=== PATIENT | male | born 1970 | race Caucasian/White ===

== ENCOUNTER 2016-03-28 15:05 | Emergency (ER) | payer OTHER ==
[2016-03-28] MEDS ORDERED: IBUPROFEN 800 MG TAB As Ordered ONE (15:21)
[2016-03-28] MEDS ORDERED: ACETAMINOPHEN 325 MG TAB As Ordered ONE (15:22)
[2016-03-28] MEDS ORDERED: IPRATROPIUM 0.5MG/ALBUTEROL 2.5MG INH SOL UD 3ML (DUONEB)(J7620) As Ordered ONE (15:27)
--- NOTE | 2016-03-28 17:04 | REP ---
Clinical: Cough. Comparison: 11/30/2005 Technique: PA and lateral. Findings: The mediastinum and cardiac silhouette are normal. The lung egan demonstrate chronic interstitial changes without acute consolidation, effusion, or pneumothorax. The skeletal structures are intact and normal. Impression: 1. Chronic stable changes. No acute cardiopulmonary process. Signed by Vinnie Arcos MD 03/28/2016 04:55 P
--- NOTE | 2016-03-28 17:17 | EDDOCDS ---
Physician Documentation [facility] Name: Diallo Batista Age: 46 yrs Sex: Male : 1970 Arrival Date: 03/28/2016 Time: 15:05 Bed PD Private MD: NO PRIMARY PHYSICIAN, . Disposition: 03/28/16 17:05 Discharged to Home/Self Care. Impression: Acute bronchitis, Acute suppurative otitis media without spontaneous rupture of ear drum, left ear. - Condition is Stable. - Discharge Instructions: Acute Bronchitis, Otitis Media, Adult. - Prescriptions for Augmentin 875- 125 mg Oral Tablet - take 1 tablet by ORAL route every 12 hours for 10 days; 20 tablet. benzonatate 200 mg Oral Capsule - take 1 capsule by ORAL route 3 times per day As needed; 30 capsule. Albuterol Sulfate 90 mcg/actuation Inhalation HFA Aerosol Inhaler - inhale 2 puff by INHALATION route every 4 hours As needed; 1 Inhaler. - Referral List Call for Appointment, Medication Reconciliation, Local Pharmacy Hours, Work Release Form - 3 day form. - Follow up: Emergency Department; When: As needed; Reason: Trouble breathing, Worsening of conditions. [facility]: [facility]; When: Call to arrange an appointment; Reason: Recheck today's complaints, To establish care. - Problem is new. - Symptoms have improved. Historical: - Allergies: no known allergies; - Home Meds: 1. none - PMHx: Hypertension; Asthma; - PSHx: none; - Social history: Smoking status: Patient uses tobacco products, heavy tobacco smoker. No barriers to communication noted, The patient speaks fluent [place], Speaks appropriately for age. - Family history: Not pertinent. - : The pt / caregiver states he / she is not on anticoagulants. Home medication list is obtained from the patient. - Exposure Risk Screening:: None identified. Vital Signs: 03/28 15:06 BP 162 / 99; Pulse 118; Resp 18 S; Temp 102.2(T); Pulse Ox 98% on R/A; Weight 107.05 kg dd6 / 236 lbs (R); Height 6 ft. 1 in. (185.42 cm) (R); 15:18 Temp 101.8(O); ms18 16:10 BP 158 / 98; Pulse 110; Resp 18; Temp 101.4(O); Pulse Ox 97% on R/A; Pain 0/10; dwg 17:03 BP 143 / 81; Pulse 98; Resp 18; Temp 100.6(O); Pulse Ox 96% on R/A; ms18 15:06 Body Mass Index 31.14 (107.05 kg, 185.42 cm) dd6 MDM: 15:17 Ibuprofen 800 mg PO once ordered. ef1 15:17 Acetaminophen Tablet 975 mg PO once ordered. ef1 15:17 Albuterol-Ipratropium 1 neb Nebulizer every 20 minutes x3 ordered. ef1 15:17 Call Respiratory ordered. ef1 15:17 Strep Screen, Nursing ordered. ef1 15:18 Chest, 2 View (pa\E\lat) Ordered. EDMS 15:19 Call Respiratory complete. ms18 15:30 GATS (NEGATIVE STREP SCREEN) Ordered. EDMS 15:42 Financial registration complete. zo 15:47 [facility] Payment Agreement was scanned into [employer] and attached to record. zo 16:14 -Influenza A&B Rapid Antigen - Nose Ordered. EDMS 16:45 -Influenza A&B Rapid Antigen - Nose Reviewed. ar2 Administered Medications: 15:24 Drug: Ibuprofen 800 mg Route: PO; dwg 16:12 Follow up: Response: Temperature is decreased dwg 15:24 Drug: Acetaminophen 975 mg [acetaminophen 325 mg tablet (3 tabs)] Route: PO; dwg 16:12 Follow up: Response: Temperature is decreased dwg 15:27 Drug: Albuterol-Ipratropium 1 neb [ipratropium-albuterol 0.5 mg-3 mg(2.5 mg base)/3 mL rs5 nebulization soln (1 neb)] Route: Nebulizer; Signatures: Dispatcher MedHost EDMS Anthony Lynne zo Nadeem Moore PA-C PA-C ar2 Nadeen Melissa PA-C PA-C ef1 Juanita Ruff RN RN ms18 Ceci Arellano RN RN kc3 Morales Padilla RNg Buddy Jeffries RT rs5 The chart was reviewed and I authenticate all verbal orders and agree with the evaluation and treatment provided.Attachments: 15:47 [facility] Payment Agreement zo MTDD
--- NOTE | 2016-03-28 17:17 | EDDOCDS ---
Nurse's Notes [facility] Name: Diallo Batista Age: 46 yrs Sex: Male : 1970 Arrival Date: 03/28/2016 Time: 15:05 Bed PD Private MD: NO PRIMARY PHYSICIAN, . Diagnosis: Acute bronchitis;Acute suppurative otitis media without spontaneous rupture of ear drum, left ear Presentation: 03/28 15:08 Presenting complaint: Patient states: chest congestion x 2 days with productive cough, kc3 and headache. Adult Sepsis Screening: The patient does not have new or worsening altered mentation. Patient's respiratory rate is less than 22. Systolic blood pressure is greater than 100. Patient has a qSOFA score of 0- Negative Sepsis Screen. Suicide/Homicide risk assessment- the patient denies having any suicidal and/or homicidal ideations and does not present with any other emotional, behavioral or mental health complaints. Status: Patient is not a service desk lead or dependent. Transition of care: patient was not received from another setting of care. 15:08 Method Of Arrival: Walkin/Carried/Asstd kc3 15:18 Acuity level changed due to complexity of care. [facility] 15:18 Acuity: KATLYN Level 3 dw Triage Assessment: 15:10 General: Appears in no apparent distress, comfortable, Behavior is appropriate for age, kc3 cooperative. Pain: Location: headache Pain currently is 4 out of 10 on a pain scale. HIV screening NA for this visit Offered previously. Neurological: Level of Consciousness is awake, alert, obeys commands, Oriented to person, place, time. Respiratory: Onset: The symptoms/episode began/occurred 2 days ago, Airway is patent Respiratory effort is even, unlabored. Respiratory: Reports cough that is productive, pain with cough. Derm: Skin is pink, warm & dry. Historical: - Allergies: no known allergies; - Home Meds: 1. none - PMHx: Hypertension; Asthma; - PSHx: none; - Social history: Smoking status: Patient uses tobacco products, heavy tobacco smoker. No barriers to communication noted, The patient speaks fluent [place], Speaks appropriately for age. - Family history: Not pertinent. - : The pt / caregiver states he / she is not on anticoagulants. Home medication list is obtained from the patient. - Exposure Risk Screening:: None identified. Screenin:03 Screening information is obtained from the patient. Fall risk: No risks identified. ms18 Assistance ADL's: requires no assistance with activities of daily living. Abuse/DV Screen: The patient / caregiver reports he/she is: not in a situation that causes fear, pain or injury. Nutritional screening: No deficits noted. Advance Directives: There is no living will. home support is adequate. Assessment: 16:27 General: Appears in no apparent distress, Behavior is cooperative. Pain: Pain currently dwg is 2 out of 10 on a pain scale. Neurological: Level of Consciousness is awake, alert, Oriented to person, place, time. Respiratory: Airway is patent Respiratory effort is even, unlabored, Respiratory pattern is regular, symmetrical, Breath sounds are clear bilaterally. GI: Bowel sounds present X 4 quads. 17:06 General: Appears in no apparent distress, comfortable, obese, Behavior is appropriate ms18 for age, cooperative. Neurological: No deficits noted. Cardiovascular: Chest pain is denied. Respiratory: Airway is patent Respiratory effort is even, unlabored. Derm: Skin is pink, warm & dry. 17:15 Pain: Denies pain. ms18 Vital Signs: 15:06 BP 162 / 99; Pulse 118; Resp 18 S; Temp 102.2(T); Pulse Ox 98% on R/A; Weight 107.05 kg dd6 (R); Height 6 ft. 1 in. (185.42 cm) (R); 15:18 Temp 101.8(O); ms18 16:10 BP 158 / 98; Pulse 110; Resp 18; Temp 101.4(O); Pulse Ox 97% on R/A; Pain 0/10; dwg 17:03 BP 143 / 81; Pulse 98; Resp 18; Temp 100.6(O); Pulse Ox 96% on R/A; ms18 15:06 Body Mass Index 31.14 (107.05 kg, 185.42 cm) dd6 Vitals: 15:06 Log In Time: March 28, 2016 at 15:04. dd6 ED Course: 15:06 Patient visited by Luke Kang PCA. dd6 15:06 NO PRIMARY PHYSICIAN, . is Private Physician. dd6 15:06 Patient moved to Waiting dd6 15:07 Patient moved to Pre RCE dd6 15:09 Triage Initiated kc3 15:12 Nadeen Melissa PA-C is PHCP. ef1 15:12 Madie Donohue MD is Attending Physician. ef1 15:12 Patient moved to Triage 1 kc3 15:17 Patient visited by Nadeen Melissa PA-C. ef1 15:22 Patient moved to PD rs6 15:47 [facility] Payment Agreement was scanned into Celly and attached to record. zo 15:50 Patient visited by Nadeen Melissa PA-C. ef1 15:51 PHCP role handed off by Nadeen Melissa PA-C ar2 15:51 Nadeem Moore PA-C is PHCP. ar2 16:12 Patient visited by Morales Padilla, DEE. dwg 16:19 -Influenza A&B Rapid Antigen - Nose Sent. dwg 16:29 Patient visited by Morales Padilla, RN. dwg 17:03 Patient visited by Juanita Ruff,DEE. ms18 17:03 The patient / caregiver is instructed regarding the plan of care and ED course. Patient ms18 has correct armband on for positive identification. Bed in low position. Call light in reach. Property sent home with patient. :Personal belongings accompany Pt. 17:03 No IV's were initiated during this patient's visit. No procedures done that require ms18 assistance. 17:04 [facility] is Referral Physician. ar2 17:15 Patient visited by Juanita Ruff RN. ms18 17:15 Chest, 2 View (pa\E\lat) Returned. EDMS Administered Medications: 15:24 Drug: Ibuprofen 800 mg Route: PO; dwg 16:12 Follow up: Response: Temperature is decreased dwg 15:24 Drug: Acetaminophen 975 mg [acetaminophen 325 mg tablet (3 tabs)] Route: PO; dwg 16:12 Follow up: Response: Temperature is decreased dwg 15:27 Drug: Albuterol-Ipratropium 1 neb [ipratropium-albuterol 0.5 mg-3 mg(2.5 mg base)/3 mL rs5 nebulization soln (1 neb)] Route: Nebulizer; RT: 15:31 Initial Med Neb Given as ordered Patient was instructed and evaluated on procedure rs5 Patient tolerated procedure well without adverse effect. Respiratory: Respiratory effort is even, unlabored, Respiratory pattern is regular symmetrical, Breath sounds are clear bilaterally. Reports cough that is productive. Order Results: Lab Order: -Influenza A&B Rapid Antigen - Nose; SPEC'M 03/28/16 16:17 Test: INFLUENZA A RAPID SCR by ICA; Value: INFLUENZA A RESULTS NEGATIVE; Status: F Test: INFLUENZA A RAPID SCR by ICA; Value: Comments:; Status: F Test: INFLUENZA B RAPID SCR by ICA; Value: INFLUENZA B RESULTS NEGATIVE; Status: F Test Note: ; The Influenza test is a direct rapid immunoassay for the qualitative detection of Influenza viral antigen. Cell culture (Viral Culture) testing should be considered to confirm NEGATIVE results and to assist in detecting other viruses that can provide similar clinical symptoms. Please contact the lab within 24 hours ([phone]) if confirmatory testing is desired. Radiology Order: Chest, 2 View (pa\E\lat) Test: Chest, 2 View (pa\E\lat) REASON FOR EXAMINATION: Cough; Clinical: Cough.; ; Comparison: 11/30/2005; ; Technique: PA and lateral.; ; Findings:; The mediastinum and cardiac silhouette are normal. The lung egna demonstrate; chronic interstitial changes without acute consolidation, effusion, or; pneumothorax. The skeletal structures are intact and normal.; ; Impression:; 1. Chronic stable changes. No acute cardiopulmonary process.; ; ; Signed by; Vinnie Arcos MD 03/28/2016 04:55 P; Outcome: 17:05 Discharge ordered by Provider. ar2 17:15 Discharge Assessment: Patient awake, alert and oriented x 3. No cognitive and/or ms18 functional deficits noted. Patient verbalized understanding of disposition instructions. patient administered narcotics - no. The following High Risk Discharge criteria are identified: None. Discharged to home ambulatory. Condition: good Condition: stable Condition: improved. Discharge instructions given to patient, Instructed on discharge instructions, follow up and referral plans. medication usage, Demonstrated understanding of instructions, medications, Pt was receptive of discharge instructions/ teaching. Prescriptions given X 3. No special radiology studies were completed. Property sent home with patient. 17:16 Patient left the ED. ms18 Signatures: Dispatcher MedHost EDMS Morales Padilla RN RN dwg Olin, Zoeann zo Robertshaw, Aaron, PAJosianeC PA-C ar2 Luke Kang, CELL EFFICIENCY SUPERVISOR CELL EFFICIENCY SUPERVISOR dd6 Nadeen Melissa, PA-C PA-C ef1 Buddy Jeffries,RT RT rs5 Juanita Ruff,RN RN ms18 Janet Laguerre, CELL EFFICIENCY SUPERVISOR CELL EFFICIENCY SUPERVISOR rs6 Ceci Arellano,RN RN kc3 Corrections: (The following items were deleted from the chart) 15:18 15:08 Acuity: KATLYN Level 4 kc3 dwg MTDD
--- NOTE | 2016-03-30 18:17 | EDDOCDS ---
Physician Documentation [facility] Name: Diallo Batista Age: 46 yrs Sex: Male : 1970 Arrival Date: 03/28/2016 Time: 15:05 Bed PD Private MD: NO PRIMARY PHYSICIAN, . Disposition: 03/28/16 17:05 Discharged to Home/Self Care. Impression: Acute bronchitis, Acute suppurative otitis media without spontaneous rupture of ear drum, left ear. - Condition is Stable. - Discharge Instructions: Acute Bronchitis, Otitis Media, Adult. - Prescriptions for Augmentin 875- 125 mg Oral Tablet - take 1 tablet by ORAL route every 12 hours for 10 days; 20 tablet. benzonatate 200 mg Oral Capsule - take 1 capsule by ORAL route 3 times per day As needed; 30 capsule. Albuterol Sulfate 90 mcg/actuation Inhalation HFA Aerosol Inhaler - inhale 2 puff by INHALATION route every 4 hours As needed; 1 Inhaler. - Referral List Call for Appointment, Medication Reconciliation, Local Pharmacy Hours, Work Release Form - 3 day form. - Follow up: Emergency Department; When: As needed; Reason: Trouble breathing, Worsening of conditions. [facility]: [facility]; When: Call to arrange an appointment; Reason: Recheck today's complaints, To establish care. - Problem is new. - Symptoms have improved. Historical: - Allergies: no known allergies; - Home Meds: 1. none - PMHx: Hypertension; Asthma; - PSHx: none; - Social history: Smoking status: Patient uses tobacco products, heavy tobacco smoker. No barriers to communication noted, The patient speaks fluent [place], Speaks appropriately for age. - Family history: Not pertinent. - : The pt / caregiver states he / she is not on anticoagulants. Home medication list is obtained from the patient. - Exposure Risk Screening:: None identified. Vital Signs: 03/28 15:06 BP 162 / 99; Pulse 118; Resp 18 S; Temp 102.2(T); Pulse Ox 98% on R/A; Weight 107.05 kg dd6 / 236 lbs (R); Height 6 ft. 1 in. (185.42 cm) (R); 15:18 Temp 101.8(O); ms18 16:10 BP 158 / 98; Pulse 110; Resp 18; Temp 101.4(O); Pulse Ox 97% on R/A; Pain 0/10; dwg 17:03 BP 143 / 81; Pulse 98; Resp 18; Temp 100.6(O); Pulse Ox 96% on R/A; ms18 15:06 Body Mass Index 31.14 (107.05 kg, 185.42 cm) dd6 MDM: 15:17 Ibuprofen 800 mg PO once ordered. ef1 15:17 Acetaminophen Tablet 975 mg PO once ordered. ef1 15:17 Albuterol-Ipratropium 1 neb Nebulizer every 20 minutes x3 ordered. ef1 15:17 Call Respiratory ordered. ef1 15:17 Strep Screen, Nursing ordered. ef1 15:18 Chest, 2 View (pa\E\lat) Ordered. EDMS 15:19 Call Respiratory complete. ms18 15:30 GATS (NEGATIVE STREP SCREEN) Ordered. EDMS 15:42 Financial registration complete. zo 15:47 [facility] Payment Agreement was scanned into [employer] and attached to record. zo 16:14 -Influenza A&B Rapid Antigen - Nose Ordered. EDMS 16:45 -Influenza A&B Rapid Antigen - Nose Reviewed. ar2 03/29 10:10 T-Sheet-- Draft Copy was scanned into [employer] and attached to record. gb Administered Medications: 03/28 15:24 Drug: Ibuprofen 800 mg Route: PO; dwg 16:12 Follow up: Response: Temperature is decreased dwg 15:24 Drug: Acetaminophen 975 mg [acetaminophen 325 mg tablet (3 tabs)] Route: PO; dwg 16:12 Follow up: Response: Temperature is decreased dwg 15:27 Drug: Albuterol-Ipratropium 1 neb [ipratropium-albuterol 0.5 mg-3 mg(2.5 mg base)/3 mL rs5 nebulization soln (1 neb)] Route: Nebulizer; Signatures: Dispatcher MedHost EDMS Lupe Lima, David Reg gb Anthony Lynne zo Nadeem Moore PA-C PA-C ar2 Nadeen Melissa PA-C PAMichael ef1 Juanita Ruff RN RN ms18 Ceci Arellano RN RN kc3 Morales Padilla RN dwg Buddy Jeffries RT rs5 The chart was reviewed and I authenticate all verbal orders and agree with the evaluation and treatment provided.Attachments: 15:47 [facility] Payment Agreement zo 03/29 10:10 T-Sheet-- Draft Copy gb Chart Complete MTDD
--- NOTE | 2016-03-30 18:17 | EDDOCDS ---
Physician Documentation [facility] Name: Diallo Batista Age: 46 yrs Sex: Male : 1970 Arrival Date: 03/28/2016 Time: 15:05 Bed PD Private MD: NO PRIMARY PHYSICIAN, . Disposition: 03/28/16 17:05 Discharged to Home/Self Care. Impression: Acute bronchitis, Acute suppurative otitis media without spontaneous rupture of ear drum, left ear. - Condition is Stable. - Discharge Instructions: Acute Bronchitis, Otitis Media, Adult. - Prescriptions for Augmentin 875- 125 mg Oral Tablet - take 1 tablet by ORAL route every 12 hours for 10 days; 20 tablet. benzonatate 200 mg Oral Capsule - take 1 capsule by ORAL route 3 times per day As needed; 30 capsule. Albuterol Sulfate 90 mcg/actuation Inhalation HFA Aerosol Inhaler - inhale 2 puff by INHALATION route every 4 hours As needed; 1 Inhaler. - Referral List Call for Appointment, Medication Reconciliation, Local Pharmacy Hours, Work Release Form - 3 day form. - Follow up: Emergency Department; When: As needed; Reason: Trouble breathing, Worsening of conditions. Follow [facility]: [facility]; When: Call to arrange an appointment; Reason: Recheck today's complaints, To establish care. - Problem is new. - Symptoms have improved. Historical: - Allergies: no known allergies; - Home Meds: 1. none - PMHx: Hypertension; Asthma; - PSHx: none; - Social history: Smoking status: Patient uses tobacco products, heavy tobacco smoker. No barriers to communication noted, The patient speaks fluent [place], Speaks appropriately for age. - Family history: Not pertinent. - : The pt / caregiver states he / she is not on anticoagulants. Home medication list is obtained from the patient. - Exposure Risk Screening:: None identified. Vital Signs: 03/28 15:06 BP 162 / 99; Pulse 118; Resp 18 S; Temp 102.2(T); Pulse Ox 98% on R/A; Weight 107.05 kg dd6 / 236 lbs (R); Height 6 ft. 1 in. (185.42 cm) (R); 15:18 Temp 101.8(O); ms18 16:10 BP 158 / 98; Pulse 110; Resp 18; Temp 101.4(O); Pulse Ox 97% on R/A; Pain 0/10; dwg 17:03 BP 143 / 81; Pulse 98; Resp 18; Temp 100.6(O); Pulse Ox 96% on R/A; ms18 15:06 Body Mass Index 31.14 (107.05 kg, 185.42 cm) dd6 MDM: 15:17 Ibuprofen 800 mg PO once ordered. ef1 15:17 Acetaminophen Tablet 975 mg PO once ordered. ef1 15:17 Albuterol-Ipratropium 1 neb Nebulizer every 20 minutes x3 ordered. ef1 15:17 Call Respiratory ordered. ef1 15:17 Strep Screen, Nursing ordered. ef1 15:18 Chest, 2 View (pa\E\lat) Ordered. EDMS 15:19 Call Respiratory complete. ms18 15:30 GATS (NEGATIVE STREP SCREEN) Ordered. EDMS 15:42 Financial registration complete. zo 15:47 [facility] Payment Agreement was scanned into [employer] and attached to record. zo 16:14 -Influenza A&B Rapid Antigen - Nose Ordered. EDMS 16:45 -Influenza A&B Rapid Antigen - Nose Reviewed. ar2 03/29 10:10 T-Sheet-- Draft Copy was scanned into [employer] and attached to record. gb Administered Medications: 03/28 15:24 Drug: Ibuprofen 800 mg Route: PO; dwg 16:12 Follow up: Response: Temperature is decreased dwg 15:24 Drug: Acetaminophen 975 mg [acetaminophen 325 mg tablet (3 tabs)] Route: PO; dwg 16:12 Follow up: Response: Temperature is decreased dwg 15:27 Drug: Albuterol-Ipratropium 1 neb [ipratropium-albuterol 0.5 mg-3 mg(2.5 mg base)/3 mL rs5 nebulization soln (1 neb)] Route: Nebulizer; Signatures: Dispatcher MedHost EDMS Lupe Lima, David Reg gb Anthony Lynne zo Nadeem Moore PA-C PA-C ar2 Nadeen Melissa PA-C PAMichael ef1 Juanita Ruff RN RN ms18 Ceci Arellano RN RN kc3 Morales Padilla RN dwg Buddy Jeffries RT rs5 The chart was reviewed and I authenticate all verbal orders and agree with the evaluation and treatment provided.Attachments: 15:47 [facility] Payment Agreement zo 03/29 10:10 T-Sheet-- Draft Copy gb Chart Complete MTDD
--- NOTE | 2016-03-30 18:17 | EDDOCDS ---
Nurse's Notes [facility] Name: Diallo Batista Age: 46 yrs Sex: Male : 1970 Arrival Date: 03/28/2016 Time: 15:05 Bed PD Private MD: NO PRIMARY PHYSICIAN, . Diagnosis: Acute bronchitis;Acute suppurative otitis media without spontaneous rupture of ear drum, left ear Presentation: 03/28 15:08 Presenting complaint: Patient states: chest congestion x 2 days with productive cough, kc3 and headache. Adult Sepsis Screening: The patient does not have new or worsening altered mentation. Patient's respiratory rate is less than 22. Systolic blood pressure is greater than 100. Patient has a qSOFA score of 0- Negative Sepsis Screen. Suicide/Homicide risk assessment- the patient denies having any suicidal and/or homicidal ideations and does not present with any other emotional, behavioral or mental health complaints. 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 Transition of care: patient was not received from another setting of care. 15:08 Method Of Arrival: Walkin/Carried/Asstd kc3 15:18 Acuity level changed due to complexity of care. [facility] 15:18 Acuity: KATLYN Level 3 dw Triage Assessment: 15:10 General: Appears in no apparent distress, comfortable, Behavior is appropriate for age, kc3 cooperative. Pain: Location: headache Pain currently is 4 out of 10 on a pain scale. HIV screening NA for this visit Offered previously. Neurological: Level of Consciousness is awake, alert, obeys commands, Oriented to person, place, time. Respiratory: Onset: The symptoms/episode began/occurred 2 days ago, Airway is patent Respiratory effort is even, unlabored. Respiratory: Reports cough that is productive, pain with cough. Derm: Skin is pink, warm & dry. Historical: - Allergies: no known allergies; - Home Meds: 1. none - PMHx: Hypertension; Asthma; - PSHx: none; - Social history: Smoking status: Patient uses tobacco products, heavy tobacco smoker. No barriers to communication noted, The patient speaks fluent Turkmen, Speaks appropriately for age. - Family history: Not pertinent. - : The pt / caregiver states he / she is not on anticoagulants. Home medication list is obtained from the patient. - Exposure Risk Screening:: None identified. Screenin:03 Screening information is obtained from the patient. Fall risk: No risks identified. ms18 Assistance ADL's: requires no assistance with activities of daily living. Abuse/DV Screen: The patient / caregiver reports he/she is: not in a situation that causes fear, pain or injury. Nutritional screening: No deficits noted. Advance Directives: There is no living will. home support is adequate. Assessment: 16:27 General: Appears in no apparent distress, Behavior is cooperative. Pain: Pain currently dwg is 2 out of 10 on a pain scale. Neurological: Level of Consciousness is awake, alert, Oriented to person, place, time. Respiratory: Airway is patent Respiratory effort is even, unlabored, Respiratory pattern is regular, symmetrical, Breath sounds are clear bilaterally. GI: Bowel sounds present X 4 quads. 17:06 General: Appears in no apparent distress, comfortable, obese, Behavior is appropriate ms18 for age, cooperative. Neurological: No deficits noted. Cardiovascular: Chest pain is denied. Respiratory: Airway is patent Respiratory effort is even, unlabored. Derm: Skin is pink, warm & dry. 17:15 Pain: Denies pain. ms18 Vital Signs: 15:06 BP 162 / 99; Pulse 118; Resp 18 S; Temp 102.2(T); Pulse Ox 98% on R/A; Weight 107.05 kg dd6 (R); Height 6 ft. 1 in. (185.42 cm) (R); 15:18 Temp 101.8(O); ms18 16:10 BP 158 / 98; Pulse 110; Resp 18; Temp 101.4(O); Pulse Ox 97% on R/A; Pain 0/10; dwg 17:03 BP 143 / 81; Pulse 98; Resp 18; Temp 100.6(O); Pulse Ox 96% on R/A; ms18 15:06 Body Mass Index 31.14 (107.05 kg, 185.42 cm) dd6 Vitals: 15:06 Log In Time: March 28, 2016 at 15:04. dd6 ED Course: 15:06 Patient visited by Luke Kang PCA. dd6 15:06 NO PRIMARY PHYSICIAN, . is Private Physician. dd6 15:06 Patient moved to Waiting dd6 15:07 Patient moved to Pre RCE dd6 15:09 Triage Initiated kc3 15:12 Nadeen Melissa PA-C is PHCP. ef1 15:12 Madie Donohue MD is Attending Physician. ef1 15:12 Patient moved to Triage 1 kc3 15:17 Patient visited by Nadeen Melissa PA-C. ef1 15:22 Patient moved to PD rs6 15:47 [facility] Payment Agreement was scanned into [employer] and attached to record. zo 15:50 Patient visited by Nadeen Melissa PA-C. ef1 15:51 PHCP role handed off by Nadeen Melissa PA-C ar2 15:51 Nadeem Moore PA-C is PHCP. ar2 16:12 Patient visited by Morales Padilla, DEE. dwg 16:19 -Influenza A&B Rapid Antigen - Nose Sent. dwg 16:29 Patient visited by Morales Padilla, RN. dwg 17:03 Patient visited by Juanita Ruff,DEE. ms18 17:03 The patient / caregiver is instructed regarding the plan of care and ED course. Patient ms18 has correct armband on for positive identification. Bed in low position. Call light in reach. Property sent home with patient. :Personal belongings accompany Pt. 17:03 No IV's were initiated during this patient's visit. No procedures done that require ms18 assistance. 17:04 [facility] is Referral Physician. ar2 17:15 Patient visited by Juanita Ruff,DEE. ms18 17:15 Chest, 2 View (pa\E\lat) Returned. EDMS 03/29 10:10 T-Sheet-- Draft Copy was scanned into [employer] and attached to record. gb Administered Medications: 03/28 15:24 Drug: Ibuprofen 800 mg Route: PO; dwg 16:12 Follow up: Response: Temperature is decreased dwg 15:24 Drug: Acetaminophen 975 mg [acetaminophen 325 mg tablet (3 tabs)] Route: PO; dwg 16:12 Follow up: Response: Temperature is decreased dwg 15:27 Drug: Albuterol-Ipratropium 1 neb [ipratropium-albuterol 0.5 mg-3 mg(2.5 mg base)/3 mL rs5 nebulization soln (1 neb)] Route: Nebulizer; RT: 15:31 Initial Med Neb Given as ordered Patient was instructed and evaluated on procedure rs5 Patient tolerated procedure well without adverse effect. Respiratory: Respiratory effort is even, unlabored, Respiratory pattern is regular symmetrical, Breath sounds are clear bilaterally. Reports cough that is productive. Order Results: Lab Order: GATS (NEGATIVE STREP SCREEN); SPEC'M 03/28/16 15:05 Test: GATS CULTURE (NEG STREP SCR); Value: GATS RESULT NEGATIVE FOR STREP PYOGENES (GROUP A); Status: F Lab Order: -Influenza A&B Rapid Antigen - Nose; SPEC'M 03/28/16 16:17 Test: INFLUENZA A RAPID SCR by ICA; Value: INFLUENZA A RESULTS NEGATIVE; Status: F Test: INFLUENZA A RAPID SCR by ICA; Value: Comments:; Status: F Test: INFLUENZA B RAPID SCR by ICA; Value: INFLUENZA B RESULTS NEGATIVE; Status: F Test Note: ; The Influenza test is a direct rapid immunoassay for the qualitative detection of Influenza viral antigen. Cell culture (Viral Culture) testing should be considered to confirm NEGATIVE results and to assist in detecting other viruses that can provide similar clinical symptoms. Please contact the lab within 24 hours ([phone]) if confirmatory testing is desired. Radiology Order: Chest, 2 View (pa\E\lat) Test: Chest, 2 View (pa\E\lat) REASON FOR EXAMINATION: Cough; Clinical: Cough.; ; Comparison: 11/30/2005; ; Technique: PA and lateral.; ; Findings:; The mediastinum and cardiac silhouette are normal. The lung egan demonstrate; chronic interstitial changes without acute consolidation, effusion, or; pneumothorax. The skeletal structures are intact and normal.; ; Impression:; 1. Chronic stable changes. No acute cardiopulmonary process.; ; ; Signed by; Vinnie Arcos MD 03/28/2016 04:55 P; Outcome: 17:05 Discharge ordered by Provider. ar2 17:15 Discharge Assessment: Patient awake, alert and oriented x 3. No cognitive and/or ms18 functional deficits noted. Patient verbalized understanding of disposition instructions. patient administered narcotics - no. The following High Risk Discharge criteria are identified: None. Discharged to home ambulatory. Condition: good Condition: stable Condition: improved. Discharge instructions given to patient, Instructed on discharge instructions, follow up and referral plans. medication usage, Demonstrated understanding of instructions, medications, Pt was receptive of discharge instructions/ teaching. Prescriptions given X 3. No special radiology studies were completed. Property sent home with patient. 17:16 Patient left the ED. ms18 Signatures: Dispatcher [employer] EDMorales Clayton, RN RN dwg Lupe Lima, Reg Reg gb Anthony Lynne Aaron, PAJosianeC PA-Uriel ar2 Luke Kang, SENIOR SALES ASSISTANT SENIOR SALES ASSISTANT dd6 Nadeen Melissa PAJosianeC PAMichael ef1 Buddy Jeffries,RT RT rs5 Juanita Ruff RN RN ms18 Janet Laguerre, SENIOR SALES ASSISTANT SENIOR SALES ASSISTANT rs6 Ceci Arellano,DEE RN kc3 Corrections: (The following items were deleted from the chart) 15:18 15:08 Acuity: KATLYN Level 4 kc3 karishma Chart Complete MTDD
== END 2016-03-28 17:16 | disposition home or self-care (01) ==
LOC: M ED 15:05
DX: H66.93 Otitis media, unspecified, bilateral (principal); J20.9 Acute bronchitis, unspecified; R50.9 Fever, unspecified; R51 Headache; I10 Essential (primary) hypertension; J45.909 Unspecified asthma, uncomplicated; F17.210 Nicotine dependence, cigarettes, uncomplicated

== ENCOUNTER 2017-04-01 21:44 | Emergency (ER) | payer OTHER ==
[2017-04-02] MEDS: IPRATROPIUM 0.5MG/ALBUTEROL 2.5MG INH SOL UD 3ML (DUONEB)(J7620) NEB (06:15)
[2017-04-02] MEDS: ACETAMINOPHEN 325 MG TAB PO (06:15)
[2017-04-02] MEDS: AZITHROMYCIN 250 MG TAB PO (07:00)
== END 2017-04-02 07:11 | disposition home or self-care (01) ==
LOC: M ED 04-02 07:11
DX: J45.901 Unspecified asthma with (acute) exacerbation (principal); J20.9 Acute bronchitis, unspecified; F17.210 Nicotine dependence, cigarettes, uncomplicated
CPT/HCPCS: 71046

== ENCOUNTER 2018-07-31 05:00 | Emergency (ER) | payer OTHER ==
[~2018-07-31] VITALS: Ht 185.4 cm; Wt 106.8 kg
[~2018-07-31 05:00] MED LIST: ASPI81TA21 PO; VENTAER IN; ZITHTAB PO
[2018-07-31] MEDS ORDERED: ASPI-1 PO (05:12)
[2018-07-31 05:24] LABS: BASO # 0.1 10^3/uL (0.0-0.2); BASO % 1.1 % (0.0-1.0); EOS # 0.4 10^3/uL (0.0-0.50); EOS % 5.6 % (0.0-3.0); HEMATOCRIT 55.6 % (42.0-52.0); HEMOGLOBIN 19.5 g/dl (13.5-17.5); LYMPH # 2.6 10^3/uL (1.5-4.5); LYMPH % 33.2 % (24.0-44.0); MEAN CORPUSCULAR HEMOGLOBIN 37.1 pg (27.0-33.0); MEAN CORPUSCULAR HGB CONC 35.1 g/dl (32.0-36.5); MEAN CORPUSCULAR VOLUME 105.9 fl (80.0-96.0); MONO # 0.6 10^3/uL (0.0-0.8); MONO % 8.1 % (0.0-5.0); NEUTROPHILS # 4.1 10^3/uL (1.8-7.7); NEUTROPHILS % 51.6 % (36.0-66.0); PLATELET COUNT, AUTOMATED 207 10^3/uL (150-450); RED BLOOD COUNT 5.25 10^6/uL (4.30-6.10); WHITE BLOOD COUNT 7.9 10^3/uL (4.0-10.0)
[2018-07-31 05:50] LABS: INR 0.92; PROTHROMBIN TIME 12.5 SECONDS (12.1-14.4)
[2018-07-31 05:51] LABS: PARTIAL THROMBOPLASTIN TIME 29.8 SECONDS (25.4-37.6)
[2018-07-31 05:56] LABS: ALBUMIN 3.3 GM/DL (3.2-5.2); ALT/SGPT 40 U/L (12-78); BILIRUBIN,DIRECT 0.1 MG/DL (0.0-0.2); BILIRUBIN,TOTAL 0.6 MG/DL (0.2-1.0); BLOOD UREA NITROGEN 7 MG/DL (7-18); CALCIUM LEVEL 8.2 MG/DL (8.5-10.1); CARBON DIOXIDE LEVEL 24 MEQ/L (21-32); CHLORIDE LEVEL 105 MEQ/L (98-107); CPK CREATINE PHOSPHOKINASE 118 U/L (39-308); CREATININE FOR GFR 0.99 MG/DL (0.70-1.30); FREE T4 0.82 NG/DL (0.76-1.46); GLOMERULAR FILTRATION RATE > 60.0 (>60); GLUCOSE, FASTING 86 MG/DL (70-100); LIPASE 156 U/L (73-393); MB/CK RELATIVE INDEX 2.46 (< OR =4); POTASSIUM SERUM 4.2 MEQ/L (3.5-5.1); SODIUM LEVEL 139 MEQ/L (136-145); TOTAL PROTEIN 7.2 GM/DL (6.4-8.2); TROPONIN I < 0.02 NG/ML (< 0.10)
[2018-07-31] MEDS ORDERED: ISOVUE-370 76% 100ML VIAL (Q9967) As Ordered ONE (06:08)
[2018-07-31] MEDS ORDERED: ASPIRIN 81 MG CHEW TABLET PO ONE (06:15)
[2018-07-31] MEDS ORDERED: AZITHROMYCIN INJ 500 MG, VIAL MATE ADAPTER 1 EACH in D5W 250 ML IV ONE (06:15)
[2018-07-31] MEDS ORDERED: NITROGLYCERIN 0.4 MG SUBL TABLET SL PRN (06:15)
[2018-07-31] MEDS ORDERED: cefTRIAXone SOD 1 GM in D5W MINI-BAG PLUS 50 ML IV ONE (06:15)
--- NOTE | 2018-07-31 06:19 | REP ---
Clinical: Chest pain. Technique: PA and lateral. Comparison: 04/02/2017. Findings: Cardiac silhouette is normal. Perihilar/infrahilar patchy subtle infiltrates are suggested (left greater than right). No effusion. No pneumothorax. Skeletal structures intact. Impression: Patchy perihilar/infrahilar infiltrate suggesting atelectasis and/or pneumonia. Correlation recommended. Electronically Signed by Vinnie Arcos MD 07/31/2018 06:09 A
--- NOTE | 2018-07-31 06:56 | REPVR ---
EXAM: CT Angiography Chest With Contrast EXAM DATE/TIME: 07/31/2018 6:03 AM CLINICAL HISTORY: 48 years old, male; Chest pain; Other: Pleuritic; Additional info: Pleuritic chest pain TECHNIQUE: Imaging protocol: Axial computed tomographic angiography images of the chest with intravenous contrast using CT angiography protocol. Coronal and sagittal reformatted images were created and reviewed. 3D rendering: MIP reconstructed images were created and reviewed. Radiation optimization: All CT scans at this facility use at least one of these dose optimization techniques: automated exposure control; mA and/or kV adjustment per patient size (includes targeted exams where dose is matched to clinical indication); or iterative reconstruction. Contrast material: ISO; Contrast volume: 75 ml; Contrast route: AC; COMPARISON: CR Chest, 2 view PA, Lat 07/31/2018 5:39 AM FINDINGS: Pulmonary arteries: The main pulmonary artery measures 24 mm. No pulmonary embolism is identified. Aorta: The ascending thoracic aorta measures 31 mm. Lungs: Minimal lingular atelectasis or scar. Pleural space: Normal. No pneumothorax. No pleural effusion. Heart: Normal. No cardiomegaly. No pericardial effusion. Lymph nodes: Unremarkable. No enlarged lymph nodes. Bones/joints: Unremarkable. No acute fracture. Soft tissues: Unremarkable. IMPRESSION: 1. Minimal lingular atelectasis or scar. 2. Otherwise negative CTA chest. No pulmonary embolism is identified. Electronically signed by: Buddy Yun On 07/31/2018 06:55:56 AM
[2018-07-31] MEDS ORDERED: CHLORTHALIDONE 12.5MG PER 1/2 TABLET PO ONE (07:30)
[2018-07-31] MEDS ORDERED: LISINOPRIL 10 MG TAB PO ONE (07:30)
[2018-07-31 08:09] VITALS: BP 178/108
[2018-07-31 13:02] LABS: CPK CREATINE PHOSPHOKINASE 96 U/L (39-308); MB/CK RELATIVE INDEX 2.08 (< OR =4); TROPONIN I < 0.02 NG/ML (< 0.10)
--- NOTE | 2018-07-31 13:32 | ECGEPIP ---
Stationary ECG Study 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
--- NOTE | 2018-07-31 13:40 | ECGEPIP ---
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
[2018-07-31] MEDS ORDERED: DOXY100C37 PO (13:49)
[2018-07-31 14:01] VITALS: BP 150/98
== END 2018-07-31 14:10 | disposition home or self-care (01) ==
LOC: M ED 05:00
DX: J20.9 Acute bronchitis, unspecified (principal); R07.89 Other chest pain; Z87.01 Personal history of pneumonia (recurrent); Z72.0 Tobacco use; Z82.49 Family history of ischemic heart disease and other diseases of the circulatory system; Z79.82 Long term (current) use of aspirin
CPT/HCPCS: 36415; 71046; 71275; 80048; 80076; 82550; 82553; 83690; 84439; 84443; 84484; 85025; 85610; 85730; 87040; 93005; 93041; 94760; 96365; 96366; 96368; 99285; J0456; J0696; Q9967

== ENCOUNTER 2019-11-08 12:44 | Emergency (ER) | payer OTHER, SELFPAY ==
[~2019-11-08] VITALS: Ht 185.4 cm; Wt 98.5 kg
[~2019-11-08 12:44] MED LIST changes: +ASPI-1 PO; +DOXY100C37 PO
[2019-11-08] MEDS ORDERED: LIDOCAINE 2% MDV 20ML VIAL SC ONE (13:45)
[2019-11-08] MEDS ORDERED: BACT800T5 PO (13:57)
[2019-11-08 14:12] VITALS: BP 180/110
== END 2019-11-08 14:00 | disposition home or self-care (01) ==
LOC: M ED 12:44
DX: L02.01 Cutaneous abscess of face (principal); F17.290 Nicotine dependence, other tobacco product, uncomplicated

== ENCOUNTER 2020-03-15 14:31 | Emergency (ER) | payer MEDICAID, SELFPAY ==
[~2020-03-15] VITALS: Ht 185.4 cm; Wt 96.6 kg
[~2020-03-15 14:31] MED LIST changes: +BACT800T5 PO
[2020-03-15 19:33] LABS: BASO # 0.1 10^3/uL (0.0-0.2); BASO % 1.5 % (0.0-1.0); EOS # 0.3 10^3/uL (0.0-0.5); HEMATOCRIT 58.7 % (42.0-52.0); HEMOGLOBIN 19.7 g/dl (13.5-17.5); LYMPH % 29.3 % (24.0-44.0); MEAN CORPUSCULAR HEMOGLOBIN 35.1 pg (27.0-33.0); MEAN CORPUSCULAR HGB CONC 33.6 g/dl (32.0-36.5); MEAN CORPUSCULAR VOLUME 104.6 fl (80.0-96.0); MONO # 0.7 10^3/uL (0.0-0.8); MONO % 10.1 % (0.0-5.0); NEUTROPHILS # 3.6 10^3/uL (1.5-8.5); NEUTROPHILS % 53.9 % (36.0-66.0); PLATELET COUNT, AUTOMATED 218 10^3/uL (150-450); RED BLOOD COUNT 5.61 10^6/uL (4.30-6.10); WHITE BLOOD COUNT 6.7 10^3/uL (4.0-10.0)
--- NOTE | 2020-03-15 19:39 | REP ---
INDICATION: hypertension COMPARISON: 07/31/2018 TECHNIQUE: Portable AP view of the chest FINDINGS: The mediastinum and cardiac silhouette are stable and within normal limits for portable technique. The lung egan are clear without acute consolidation, effusion, or pneumothorax. Skeletal structures are intact. IMPRESSION: No acute cardiopulmonary process appreciated. <Electronically signed by Vinnie Arcos > 03/15/20 1936
[2020-03-15 20:03] LABS: BLOOD UREA NITROGEN 9 MG/DL (7-18); CALCIUM LEVEL 8.9 MG/DL (8.5-10.1); CARBON DIOXIDE LEVEL 29 MEQ/L (21-32); CHLORIDE LEVEL 99 MEQ/L (98-107); CK-MB VALUE MASS 2.6 NG/ML (<3.6); CPK CREATINE PHOSPHOKINASE 90 U/L (39-308); CREATININE FOR GFR 0.76 MG/DL (0.70-1.30); GLOMERULAR FILTRATION RATE > 60.0 (>60); GLUCOSE, FASTING 85 MG/DL (70-100); MB/CK RELATIVE INDEX 2.89 (< OR =4); POTASSIUM SERUM 4.4 MEQ/L (3.5-5.1); SODIUM LEVEL 136 MEQ/L (136-145); TROPONIN I < 0.02 NG/ML (< 0.10)
[2020-03-15] MEDS ORDERED: hydroCHLOROthiazide 12.5 MG CAPSULE PO ONE (20:15)
[2020-03-15] MEDS ORDERED: lisinopriL 10 MG TAB PO ONE (20:15)
[2020-03-15 20:31] VITALS: BP 185/109
[2020-03-15 20:45] VITALS: BP 179/103
[2020-03-15 20:46] LABS: APPEARANCE, URINE CLEAR (CLEAR); BACTERIA, URINE AUTO NEGATIVE (NEGATIVE); BILIRUBIN, URINE AUTO NEGATIVE (NEGATIVE); BLOOD, URINE BLOOD NEGATIVE (NEGATIVE); COLOR, URINE YELLOW (YELLOW); GLUCOSE, URINE (UA) AUTO NEGATIVE (NEGATIVE); KETONE, URINE AUTO NEGATIVE (NEGATIVE); LEUKOCYTE ESTERASE, URINE AUTO NEGATIVE (NEGATIVE); MUCUS, URINE SMALL (NEGATIVE); NITRITE, URINE AUTO NEGATIVE (NEGATIVE); PROTEIN, URINE AUTO NEGATIVE (NEGATIVE); RBC, URINE AUTO 1 /HPF (0-3); SPECIFIC GRAVITY URINE AUTO 1.013 (1.002-1.035); SQUAMOUS EPITHELIAL CELL UR AU 0 /HPF (0-6); UROBILINOGEN, URINE AUTO 0.2 mg/dL (0.0-2.0); WBC, URINE AUTO 0 /HPF (0-3)
[2020-03-15] MEDS ORDERED: LISI10TA15 PO (21:05)
--- NOTE | 2020-03-16 06:55 | ECGEPIP ---
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
== END 2020-03-15 21:14 | disposition home or self-care (01) ==
LOC: M ED 14:31
DX: I10 Essential (primary) hypertension (principal); Z79.899 Other long term (current) drug therapy; F17.210 Nicotine dependence, cigarettes, uncomplicated

== ENCOUNTER 2023-02-28 09:12 | Emergency (ER) | payer BC, MEDICAID ==
[~2023-02-28] VITALS: Ht 188 cm; Wt 95.5 kg
[~2023-02-28 09:12] MED LIST changes: +DOXY-443 PO; -DOXY100C37 PO; +LISI10TA24 PO
[2023-02-28] MEDS ORDERED: MED REC IN PROGRESS XX SCH (10:05)
[2023-02-28 10:30] LABS: BASO # 0.1 10^3/uL (0.0-0.2); EOS # 0.3 10^3/uL (0.0-0.5); EOS % 3.3 % (0.0-3.0); HEMOGLOBIN 18.7 g/dl (13.5-17.5); LYMPH # 2.2 10^3/uL (1.5-5.0); LYMPH % 24.7 % (24.0-44.0); MEAN CORPUSCULAR HEMOGLOBIN 32.2 pg (27.0-33.0); MEAN CORPUSCULAR VOLUME 94.7 fl (80.0-96.0); MONO # 0.7 10^3/uL (0.0-0.8); NEUTROPHILS # 5.5 10^3/uL (1.5-8.5); NEUTROPHILS % 62.5 % (36.0-66.0); PLATELET COUNT, AUTOMATED 226 10^3/uL (150-450); RED BLOOD COUNT 5.81 10^6/uL (4.30-6.10); WHITE BLOOD COUNT 8.7 10^3/uL (4.0-10.0)
[2023-02-28 10:58] LABS: AMPHETAMINES LEVEL URINE NEGATIVE (NEGATIVE); BARBITURATES URINE NEGATIVE (NEGATIVE); BENZODIAZEPINES URINE NEGATIVE (NEGATIVE); CANNABINOIDS URINE NEGATIVE (NEGATIVE); COCAINE METABOLITE URINE NEGATIVE (NEGATIVE); METHADONE URINE NEGATIVE (NEGATIVE); OPIATES URINE NEGATIVE (NEGATIVE); PHENCYCLIDINE URINE NEGATIVE (NEGATIVE)
[2023-02-28 11:00] LABS: ETHYL ALCOHOL (ETHANOL) 0.088 % (0.000-0.010)
[2023-02-28 11:01] LABS: SALICYLATE LEVEL < 3.0 MG/DL (<30)
[2023-02-28 11:03] LABS: THYROID STIMULATING HORMONE 2.181 uIU/ML (0.55-4.78)
[2023-02-28] MEDS ORDERED: HOME MED LIST COMPLETE! XX SCH (11:15)
[2023-02-28 11:34] LABS: ALBUMIN 3.6 G/DL (3.2-5.2); ALKALINE PHOSPHATASE 96 U/L (46-116); ALT/SGPT 16 U/L (7.0-40); AST/SGOT 19 U/L (<34); BILIRUBIN,DIRECT 0.3 MG/DL (<0.4); BILIRUBIN,TOTAL 0.7 MG/DL (0.3-1.2); BLOOD UREA NITROGEN < 5 MG/DL (9-23); CALCIUM LEVEL 8.8 MG/DL (8.5-10.1); CARBON DIOXIDE LEVEL 25 MMOL/L (20-31); CHLORIDE LEVEL 105 MMOL/L (98-107); CREATININE FOR GFR 0.75 MG/DL (0.70-1.30); GLOMERULAR FILTRATION RATE > 60.0 (>56); GLUCOSE, FASTING 79 MG/DL (60-100); POTASSIUM SERUM 4.6 MMOL/L (3.5-5.1); SODIUM LEVEL 138 MMOL/L (136-145); TOTAL PROTEIN 7.3 G/DL (5.7-8.2)
[2023-02-28 13:27] VITALS: BP 148/56; TEMP 98; O2SAT 99
== END 2023-02-28 13:31 | disposition home or self-care (01) ==
LOC: M ED 09:12
DX: F43.0 Acute stress reaction (principal); F17.210 Nicotine dependence, cigarettes, uncomplicated

== ENCOUNTER 2023-12-14 10:35 | Inpatient (IN) | payer BC, SELFPAY ==
[~2023-12-14] VITALS: Ht 188 cm; Wt 93.2 kg
[~2023-12-14 10:35] MED LIST changes: +DOXY-323 PO; -DOXY-443 PO
[2023-12-14 12:19] LABS: BASO # 0.1 10^3/uL (0.0-0.2); BASO % 0.9 % (0.0-1.0); EOS # 0.2 10^3/uL (0.0-0.5); EOS % 2.3 % (0.0-3.0); HEMATOCRIT 57.9 % (42.0-52.0); LYMPH # 1.5 10^3/uL (1.5-5.0); LYMPH % 22.7 % (24.0-44.0); MEAN CORPUSCULAR HEMOGLOBIN 36.4 pg (27.0-33.0); MEAN CORPUSCULAR HGB CONC 35.2 g/dl (32.0-36.5); MEAN CORPUSCULAR VOLUME 103.2 fl (80.0-96.0); MONO # 0.5 10^3/uL (0.0-0.8); MONO % 7.7 % (2.0-8.0); NEUTROPHILS # 4.3 10^3/uL (1.5-8.5); NEUTROPHILS % 66.1 % (36.0-66.0); PLATELET COUNT, AUTOMATED 129 10^3/uL (150-450); RED BLOOD COUNT 5.61 10^6/uL (4.30-6.10); WHITE BLOOD COUNT 6.5 10^3/uL (4.0-10.0)
[2023-12-14 12:34] LABS: INR 1.01
[2023-12-14 12:41] LABS: HEMOGLOBIN 20.4 g/dl (13.5-17.5)
[2023-12-14 12:42] LABS: BLOOD UREA NITROGEN 9 MG/DL (9-23); CALCIUM LEVEL 9.1 MG/DL (8.5-10.1); CARBON DIOXIDE LEVEL 30 MMOL/L (20-31); CHLORIDE LEVEL 102 MMOL/L (98-107); CREATININE FOR GFR 0.86 MG/DL (0.70-1.30); GLOMERULAR FILTRATION RATE > 60.0 (>56); GLUCOSE, FASTING 74 MG/DL (60-100); POTASSIUM SERUM 4.1 MMOL/L (3.5-5.1); SODIUM LEVEL 135 MMOL/L (136-145)
[2023-12-14 12:48] LABS: ERYTHROCYTE SEDIMENTATION RATE 39 mm/hr (0-20)
[2023-12-14] MEDS: NICOTINE 21MG/24HR 1 EA TRANSDERMAL TD ONE (14:32)
[2023-12-14] MEDS: PIPERACILLIN/TAZOBACTAM SOD 3.375 GM in D5W MINI-BAG PLUS 50 ML IV ONE (14:32)
[2023-12-14] MEDS: MORPHINE 4 MG/ML 1ML VIAL IV ONE (14:32)
[2023-12-14 14:43] LABS: PROCALCITONIN 0.15 ng/ml
[2023-12-14 15:25] LABS: HEMOGLOBIN A1c 4.8 % (4.0-6.0)
[2023-12-14] MEDS ORDERED: HOME MED LIST COMPLETE! XX SCH (15:30)
[2023-12-14] MEDS: VANCOMYCIN/WATER FOR INJ (PEG) 2,000 MG in IV 1 EA IV ONE (15:52)
[2023-12-14] MEDS: amLODIPine 5 MG TAB PO ONE (15:58)
[2023-12-14] MEDS ORDERED: ACETAMINOPHEN TAB 650MG DOSE (2X325MG) PO PRN (16:15)
[2023-12-14] MEDS: **hydrALAZINE** 10 MG TAB PO SCH (17:23)
[2023-12-14] MEDS ORDERED: ISOVUE-370 76% 100ML VIAL As Ordered ONE (17:26)
[2023-12-14 17:39] VITALS: BP 107/73; TEMP 97.2; O2SAT 100
[2023-12-14 18:22] LABS: FREE T4 1.01 NG/DL (0.89-1.76); THYROID STIMULATING HORMONE 5.237 uIU/ML (0.55-4.78)
[2023-12-14 18:29] LABS: FOLATE 8.17 NG/ML (>5.4); URIC ACID 3.8 MG/DL (3.7-9.2)
[2023-12-14 18:49] LABS: CHOLESTEROL RISK RATIO 3.31 (<5); HDL CHOLESTEROL 44.6 MG/DL (>40); LDL CHOLESTEROL 84.4 MG/DL (<100); NON-HDL-C 103.4 MG/DL
[2023-12-14] MEDS: ENOXAPARIN 40MG/0.4ML SYRINGE (J1650 PER 10MG) SC SCH (18:57)
[2023-12-14] MEDS: NS 1,000 ML IV SCH (19:00)
[2023-12-14] MEDS: NS 500 ML IV ONE (19:03)
[2023-12-14] MEDS ORDERED: PROHANCE 279.3MG/ML 5ML VIAL As Ordered ONE (19:52)
[2023-12-14] MEDS ORDERED: PROHANCE 279.3MG/ML 15ML VIAL As Ordered ONE (19:53)
[2023-12-14] MEDS: PIPERACILLIN/TAZOBACTAM SOD 3.375 GM in D5W MINI-BAG PLUS 50 ML IV SCH (21:08)
[2023-12-14 21:17] VITALS: BP 140/80; TEMP 97.5; O2SAT 94
[2023-12-14 23:35] VITALS: BP 132/58; TEMP 97.5; O2SAT 100
[2023-12-14] MEDS: VANCOMYCIN 1,250 MG/250 ML IV BAG IV SCH (23:41)
[2023-12-15 03:53] VITALS: BP 126/68; TEMP 97.7; O2SAT 100
[2023-12-15 06:05] LABS: HEMATOCRIT 48.7 % (42.0-52.0); MEAN CORPUSCULAR HGB CONC 34.7 g/dl (32.0-36.5); MEAN CORPUSCULAR VOLUME 103.6 fl (80.0-96.0); PLATELET COUNT, AUTOMATED 120 10^3/uL (150-450); WHITE BLOOD COUNT 4.8 10^3/uL (4.0-10.0)
[2023-12-15 06:07] LABS: HEMOGLOBIN 16.9 g/dl (13.5-17.5)
[2023-12-15 06:32] LABS: ALBUMIN 2.3 G/DL (3.2-5.2); ALKALINE PHOSPHATASE 72 U/L (46-116); ALT/SGPT 9 U/L (7.0-40); AST/SGOT 11 U/L (<34); BILIRUBIN,TOTAL 0.9 MG/DL (0.3-1.2); BLOOD UREA NITROGEN 9 MG/DL (9-23); CALCIUM LEVEL 8.3 MG/DL (8.5-10.1); CARBON DIOXIDE LEVEL 28 MMOL/L (20-31); CHLORIDE LEVEL 106 MMOL/L (98-107); CREATININE FOR GFR 0.88 MG/DL (0.70-1.30); GLOMERULAR FILTRATION RATE > 60.0 (>56); GLUCOSE, FASTING 93 MG/DL (60-100); POTASSIUM SERUM 4.1 MMOL/L (3.5-5.1); SODIUM LEVEL 135 MMOL/L (136-145); TOTAL PROTEIN 5.6 G/DL (5.7-8.2)
[2023-12-15] MEDS: ATORVASTATIN 20 MG TAB PO SCH ×2 (07:59→20:04)
[2023-12-15] MEDS: LEVOTHYROXINE 25MCG TABLET (0.025MG) PO SCH (09:57)
[2023-12-15] MEDS: CYANOCOBALAMIN 500 MCG TAB PO SCH (10:10)
[2023-12-15] MEDS: NICOTINE 21MG/24HR 1 EA TRANSDERMAL TD SCH (11:29)
[2023-12-15 11:30] VITALS: BP 122/70; TEMP 97.9; O2SAT 98
[2023-12-15 20:03] VITALS: BP 152/74; TEMP 98.2; O2SAT 100
[2023-12-15] MEDS: VANCOMYCIN HCL 1,000 MG, VIAL MATE ADAPTER 1 EACH in D5W 250 ML IV SCH (21:09)
[2023-12-16 04:06] VITALS: BP 152/88; TEMP 97.5; O2SAT 98
[2023-12-16 05:24] VITALS: BP 152/88
[2023-12-16 08:26] LABS: BASO # 0.1 10^3/uL (0.0-0.2); BASO % 1.5 % (0.0-1.0); EOS # 0.3 10^3/uL (0.0-0.5); EOS % 5.4 % (0.0-3.0); HEMATOCRIT 48.3 % (42.0-52.0); HEMOGLOBIN 16.4 g/dl (13.5-17.5); LYMPH # 1.6 10^3/uL (1.5-5.0); LYMPH % 34.2 % (24.0-44.0); MEAN CORPUSCULAR HEMOGLOBIN 35.4 pg (27.0-33.0); MEAN CORPUSCULAR VOLUME 104.3 fl (80.0-96.0); MONO # 0.5 10^3/uL (0.0-0.8); MONO % 10.8 % (2.0-8.0); NEUTROPHILS # 2.2 10^3/uL (1.5-8.5); NEUTROPHILS % 47.9 % (36.0-66.0); PLATELET COUNT, AUTOMATED 129 10^3/uL (150-450); RED BLOOD COUNT 4.63 10^6/uL (4.30-6.10); WHITE BLOOD COUNT 4.6 10^3/uL (4.0-10.0)
[2023-12-16 08:52] LABS: VANCOMYCIN LEVEL TROUGH 18.3 UG/ML (10.0-20.0)
[2023-12-16 08:53] LABS: BLOOD UREA NITROGEN 7 MG/DL (9-23); CALCIUM LEVEL 7.7 MG/DL (8.5-10.1); CARBON DIOXIDE LEVEL 27 MMOL/L (20-31); CHLORIDE LEVEL 107 MMOL/L (98-107); CREATININE FOR GFR 0.99 MG/DL (0.70-1.30); GLOMERULAR FILTRATION RATE > 60.0 (>56); GLUCOSE, FASTING 85 MG/DL (60-100); POTASSIUM SERUM 4.4 MMOL/L (3.5-5.1); SODIUM LEVEL 135 MMOL/L (136-145)
[2023-12-16] MEDS ORDERED: ATOR1TAB21 PO (11:26)
[2023-12-16] MEDS ORDERED: AUGM12TA11 PO (11:26)
[2023-12-16] MEDS ORDERED: VITA500T40 PO (11:26)
[2023-12-16] MEDS ORDERED: DRIS50003 PO (11:26)
[2023-12-16] MEDS ORDERED: DOXY-440 PO (11:26)
[2023-12-16] MEDS ORDERED: LEVO25TA5 PO (11:26)
[2023-12-16] MEDS ORDERED: HYDR-161 PO (11:26)
[2023-12-16] MEDS ORDERED: AMLO1TAB24 PO (11:27)
[2023-12-19] MEDS ORDERED: VITAMIN D 50,000 UNITS CAPSULE (ERGOCALCIFEROL 1.25MG) PO SCH (09:00)
== END 2023-12-16 11:46 | disposition left against medical advice (07) | DRG 344 ==
LOC: M ED 10:35 → M ED INP 16:15 → M MSPAV 18:20
PROVIDERS: ADMIT Hospitalist; ATTEND Hospitalist
DX: M86.171 Other acute osteomyelitis, right ankle and foot (principal); D75.1 Secondary polycythemia; I10 Essential (primary) hypertension; F17.200 Nicotine dependence, unspecified, uncomplicated; D53.9 Nutritional anemia, unspecified; I70.201 Unspecified atherosclerosis of native arteries of extremities, right leg; L03.031 Cellulitis of right toe; E03.9 Hypothyroidism, unspecified; E55.9 Vitamin D deficiency, unspecified